=== PATIENT | male | born 1970 | race Caucasian/White ===

== ENCOUNTER 2018-12-11 22:50 | Inpatient (IN) | payer OTHER ==
[2018-12-11 23:13] VITALS: BMI 27.3
--- NOTE | 2018-12-11 23:56 | HP ---
"CIWA Score Nausea/Vomitin-No Nausea/No Vomiting Muscle Tremors: 4-Moderate,w/Arms Extend Anxiety: 0-No Anxiety, at Ease Agitation: 4-Moderately Restless Paroxysmal Sweats: 3 (Increased facial moisture) Orientation: 1-Uncertain about Date Tacttile Disturbances: 0-None Auditory Disturbances: 0-None Visual Disturbances: 0-None Headache: 0-None Present CIWA-Ar Total Score: 12 - Admission Criteria OAS Guidelines: Admission for Medically Managed Detox: Requires at least one of the followin. CIWA greater than 12 2. Seizures within the past 24 hours 3. Delirium tremens within the past 24 hours 4. Hallucinations within the past 24 hours 5. Acute intervention needed for co occurring medical disorder 6. Acute intervention needed for co occurring psychiatric disorder 7. Severe withdrawal that cannot be handled at a lower level of care (continued vomiting, continued diarrhea, abnormal vital signs) requiring intravenous medication and/or fluids 8. Patient presents the following: CIWA greater than 12 (KI 0.025) Admission Criteria Met: Admission criteria met Admission ROS [facility] Chief Complaint: Having alcohol withdrawal. Allergies/Adverse Reactions: Allergies Allergy/AdvReac Type Severity Reaction Status Date / Time aspirin Allergy Severe Rash Verified 12/11/18 23:01 History of Present Illness: 48 yo presents w/ alcohol withdrawal symptoms requesting detox. Alcohol use began at age 19. Currently drinks 1/2 pt liquor + beers daily. Started back drinking 3 months ago. Cocaine use began at age 19. Stopped for a 1.5 years and restarted 3 months ago and uses daily. Heroin use began at age 15. [facility] has been consistently using heroin 2-3 x/ week. Currently on [facility] MMTP x 1 - 1.5 years. Current methadone dose ins 75 mg PO Daily. Last medicated 12/11/18. [facility] had a Narcan Kit at home but used to save brother's life. Patient wants another Narcan Kit. Nicotine use began at age 15. Currently smokes 1/2 PPD. Will consider nicotine patch and gum upon discharge. Denies hx seizures, blackouts, overdoses. Longest period sobriety 2 years in 2009. PMHx: NIDDM; Heart murmur MHHx: Occ depression. Denies thoughts of harming self or others. Domiciled. Search Terms: Alex Munoz, 1970 Search Date: 12/11/2018 11:53:28 PM The Drug Utilization Report below displays all of the controlled substance prescriptions, if any, that your patient has filled in the last twelve months. The information displayed on this report is compiled from pharmacy submissions to the Department, and accurately reflects the information as submitted by the pharmacies. This report was requested by: Carol Cabrera | Reference #: [id number] There are no results for the search terms that you entered. Search Terms: Alex Munoz, 1970 Search Date: 12/11/2018 11:56:09 PM States Searched: [place], [place], [place], [place], [place], [place], [place] The Drug Utilization Report below displays the controlled substance prescriptions, if any, that were dispensed in the indicated state(s). The information displayed on this report is compiled from requests submitted to other states' PMPs, and accurately reflects the information as returned by them. Blank david indicate data not provided by other state. This report was requested by: Carol Cabrera | Reference #: [id number] Exam Limitations: No Limitations - Ebola screening Have you traveled outside of the country in the last 21 days: No (N) Have you had contact with anyone from an Ebola affected area: No Have you been sick,other than usual withdrawal symptoms: No (Denies recent exposure to measles) Do you have a fever: No - Review of Systems Constitutional: Diaphoresis, Changes in sleep (Difficulty falling asleep - not on meds) EENT: reports: Blurred Vision, Dental Problems (Missing teeth and cavities.) Respiratory: reports: No Symptoms reported Cardiac: reports: No Symptoms Reported GI: reports: No Symptoms Reported : reports: No Symptoms Reported Musculoskeletal: reports: No Symptoms Reported Integumentary: reports: No Symptoms Reported Neuro: reports: Tremors Endocrine: reports: Increased Thirst Hematology: reports: No Symptoms Reported Psychiatric: reports: Judgement Intact, Orientated x3 (Missed by 1 day) Patient History - Patient Medical History Hx Anemia: No Hx Asthma: No Hx Chronic Obstructive Pulmonary Disease (COPD): No Hx Cancer: No Hx Cardiac Disorders: No Hx Hypertension: Yes (vasotec 5 mg ) Hx Hypercholesterolemia: No Hx Pacemaker: No HX Cerebrovascular Accident: No Hx Seizures: No Hx Dementia: No Hx Diabetes: Yes (metformin ) Hx Gastrointestinal Disorders: No Hx Liver Disease: No Hx Genitourinary Disorders: No Hx Sexually Transmitted Disorders: No Hx Renal Disease (ESRD): No Hx Thyroid Disease: No Hx Human Immunodeficiency Virus (HIV): No (negative 7months ago) Hx Hepatitis C: No Hx Depression: No Hx Suicide Attempt: No (denies) Hx Bipolar Disorder: No Hx Schizophrenia: No - Patient Surgical History Past Surgical History: No Hx Neurologic Surgery: No Hx Cataract Extraction: No Hx Cardiac Surgery: No Hx Lung Surgery: No Hx Breast Surgery: No Hx Breast Biopsy: No Hx Abdominal Surgery: No Hx Appendectomy: No Hx Cholecystectomy: No Hx Genitourinary Surgery: No Hx Section: No Hx Orthopedic Surgery: No Anesthesia Reaction: No - PPD History Previous Implant?: Yes Documented Results: Negative w/proof Implanted On [facility] Admission?: Yes Date: 02/19/14 PPD to be Administered?: No - Smoking Cessation Smoking history: Current every day smoker Have you smoked in the past 12 months: Yes Aproximately how many cigarettes per day: 10 Hx Chewing Tobacco Use: No Initiated information on smoking cessation: Yes 'Breaking Loose' booklet given: 12/12/18 - Substance & Tx. History Hx Alcohol Use: Yes Hx Substance Use: Yes Substance Use Type: Alcohol, Cocaine, Heroin Hx Substance Use Treatment: Yes (detox, rehab, Currently on MMTP ) - Substances abused Alcohol Substance route: Oral Frequency: Daily Amount used: 1/2 PINT [place], 12 CANS OF BEER Age of first use: 19 Date of last use: 12/11/18 Cocaine Substance route: Inhalation Frequency: Daily Amount used: $40 Age of first use: 19 Date of last use: 12/11/18 Heroin Substance route: Inhalation Frequency: Daily Amount used: 3-4 BAGS Age of first use: 15 Date of last use: 12/10/18 Admission Physical Exam BHS - Vital Signs Vital Signs: Vital Signs - 24 hr 12/11/18 22:57 Temperature 98.4 F Pulse Rate 69 Respiratory 18 Rate Blood Pressure 123/77 - Physical General Appearance: Yes: Nourished, Mild Distress, Tremorous, Sweating ( Increased facial moisture), Anxious HEENTM: Yes: EOMI, Hearing grossly Normal, Normocephalic, Normal Voice, CHAMP, Pharynx Normal, Other (Thickened oral saliva) Respiratory: Yes: Lungs Clear, Normal Breath Sounds, No Respiratory Distress Neck: Yes: No masses,lesions,Nodules, Supple Breast: Yes: Breast Exam Deferred Cardiology: Yes: Regular Rhythm, S1, S2, Bradycardia (HR: 58), Other (No murmur heard on PE.) Abdominal: Yes: Non Tender, Soft, Increased Bowel Sounds, Protuberent ( Increased abdominal adiposity) Genitourinary: Yes: Within Normal Limits Back: Yes: Normal Inspection Musculoskeletal: Yes: full range of Motion, Gait Steady Extremities: Yes: Normal Capillary Refill, Normal Range of Motion, Tremors ( Gross tremors w/ arms elevated) Neurological: Yes: licensed plumber II-XII NML intact, Fully Oriented, Alert, Motor Strength 5/5, Normal Response Integumentary: Yes: Normal Color, Warm, Diaphoresis (Increased facial moisture) , Other (Decreased skin turgor) Lymphatic: Yes: Within Normal Limits - Diagnostic (1) Alcohol dependence with uncomplicated withdrawal Current Visit: Yes Status: Acute (2) Poor dentition Current Visit: Yes Status: Chronic (3) Methadone maintenance therapy patient Current Visit: Yes Status: Chronic (4) Type 2 diabetes mellitus Current Visit: Yes Status: Chronic Qualifiers: Diabetes mellitus rip tailer insulin use: without rip tailer use Diabetes mellitus complication status: without complication Qualified Code(s): E11.9 - Type 2 diabetes mellitus without complications (5) Cocaine dependence Current Visit: Yes Status: Chronic Qualifiers: Substance use status: uncomplicated Qualified Code(s): F14.20 - Cocaine dependence, uncomplicated (6) Nicotine dependence, uncomplicated Current Visit: Yes Status: Chronic Qualifiers: Nicotine product type: cigarettes Qualified Code(s): F17.210 - Nicotine dependence, cigarettes, uncomplicated (7) History of cardiac murmur Current Visit: No Status: Chronic Comment: B/P wnl and murmur not heard on PE. (8) Dehydration Current Visit: Yes Status: Acute Cleared for Admission S - Detox or Rehab [facility] Level of Care: Medically Managed Detox Regimen/Protocol: Librium Claeared for Rehab Admission: No Breathalyzer - Breathalyzer Breathalyzer: 0.025 Urine Drug Screen - Test Device Lot number: [id number] Expiration date: 09/02/20 - Control Is test valid?: Yes - Results Drug screen NEGATIVE: No Urine drug screen results: CHEKO-Cocaine, MOP-Opiates, MTD-Methadone, BZO- Benzodiazepines Inpatient Rehab Admission - Rehab Decision to Admit Inpatient rehab admission?: No"
[2018-12-12] MEDS ORDERED: chlordiazePOXIDE HCL 10 MG CAPSULE PO PRN (00:34)
[2018-12-12] MEDS ORDERED: MENTHOL/PHENOL 1 EACH UD MM PRN (00:34)
[2018-12-12] MEDS ORDERED: MAGNESIUM CITRATE 300 ML BOTTLE PO PRN (00:34)
[2018-12-12] MEDS ORDERED: MAG HYDROX/AL HYDROX/SIMETH 30 ML UNIT-DOSE CUP PO PRN (00:34)
[2018-12-12] MEDS ORDERED: NICOTINE POLACRILEX 2 MG GUM BUC PRN (00:34)
[2018-12-12] MEDS ORDERED: ACETAMINOPHEN 325 MG TABLET (FP) PO PRN ×2 (00:34)
[2018-12-12] MEDS ORDERED: IBUPROFEN 400 MG TABLET (FP) PO PRN (00:34)
[2018-12-12] MEDS ORDERED: MAGNESIUM HYDROX 2400MG/30ML ORAL SUSPENSION 30 ML CUP PO PRN (00:34)
[2018-12-12] MEDS: chlordiazePOXIDE HCL 25 MG CAPSULE PO SCH ×3 (06:21→22:32)
[2018-12-12] MEDS ORDERED: METHADONE HCL 10 MG TABLET PO ONE (08:46)
[2018-12-12] MEDS ORDERED: METHADONE 40 MG, METHADONE 30 MG, METHADONE 5 MG PO ONE (08:50)
[2018-12-12] MEDS ORDERED: METHADONE HCL 10 MG TABLET ONE (09:51)
[2018-12-12] MEDS ORDERED: METHADONE HCL 5 MG TABLET ONE (09:51)
[2018-12-12] MEDS ORDERED: METHADONE HCL 40 MG DISPERSABLE TABLET ONE (09:52)
[2018-12-12] MEDS: NICOTINE 14 MG/24 HOURS TOPICAL PATCH TD SCH (10:47)
[2018-12-12] MEDS: PRENATAL VITAMINS W/ FOLIC ACID TABLET (FP) PO SCH (10:47)
--- NOTE | 2018-12-12 11:29 | PN ---
S CIWA - CIWA Score Nausea/Vomitin-No Nausea/No Vomiting Muscle Tremors: 3 Anxiety: 2 Agitation: 3 Paroxysmal Sweats: 3 Orientation: 0-Oriented Tacttile Disturbances: 0-None Auditory Disturbances: 0-None Visual Disturbances: 0-None Headache: 0-None Present CIWA-Ar Total Score: 11 S Progress Note (SOAP) Subjective: sweats shakes interrupted sleep body aches Objective: 12/12/18 11:36 Vital Signs Temperature 98.8 F 12/12/18 10:08 Pulse Rate 58 L 12/12/18 10:08 Respiratory Rate 18 12/12/18 10:08 Blood Pressure 120/65 12/12/18 10:08 O2 Sat by Pulse Oximetry (%) Laboratory Tests 12/12/18 12/12/18 01:34 06:23 POC Glucometer 102 107 labs pending aaox3 ambulating no acute distress Assessment: 12/12/18 11:37 withdrawals sx Plan: continue detox increase fluids pending labs
[2018-12-12] MEDS: metFORMIN HCL 500 MG TABLET (FP) PO SCH (17:32)
[2018-12-12] MEDS: MELATONIN 5 MG TABLETS PO PRN (22:32)
[2018-12-12] MEDS: THIAMINE HCL 100 MG TABLET (FP) PO SCH (22:33)
[2018-12-13] MEDS ORDERED: METHADONE HCL 5 MG TABLET ONE (04:54)
[2018-12-13] MEDS ORDERED: METHADONE HCL 40 MG DISPERSABLE TABLET ONE (04:55)
[2018-12-13] MEDS ORDERED: METHADONE HCL 10 MG TABLET ONE (04:55)
[2018-12-13] MEDS: METHADONE 40 MG, METHADONE 30 MG, METHADONE 5 MG PO SCH (05:18)
[2018-12-13] MEDS: chlordiazePOXIDE 5 MG CAPSULE PO SCH ×3 (05:18→22:33)
[2018-12-13] MEDS ORDERED: METHADONE HCL 40 MG DISPERSABLE TABLET PO SCH (06:00)
[2018-12-13] MEDS: metFORMIN HCL 500 MG TABLET (FP) PO SCH ×2 (06:58→17:32)
[2018-12-13 09:57] LABS: ALBUMIN 3.5 g/dl (3.4-5.0); BILIRUBIN,TOTAL 0.2 mg/dL (0.2-1); BLOOD UREA NITROGEN 19.8 mg/dL (7-18); CREATININE 0.9 mg/dL (0.55-1.3); POTASSIUM 4.3 mmol/L (3.5-5.1)
[2018-12-13 10:01] LABS: HEMATOCRIT 36.6 % (35.4-49); HEMOGLOBIN 12.5 GM/dL (11.7-16.9); MEAN CELL VOLUME 88.3 fl (80-96); MEAN PLT VOLUME 8.3 fl (7.5-11.1); PLATELET COUNT 301 K/MM3 (134-434); RBC 4.15 M/mm3 (4.00-5.60); RDW 14.1 % (11.9-15.9); WHITE BLOOD COUNT 6.3 K/mm3 (4.0-10.0)
[2018-12-13] MEDS: NICOTINE 14 MG/24 HOURS TOPICAL PATCH TD SCH (10:24)
[2018-12-13] MEDS: PRENATAL VITAMINS W/ FOLIC ACID TABLET (FP) PO SCH (10:24)
[2018-12-13 10:25] LABS: HYALINE CASTS 14 /lpf (0-8); URINE APPEARANCE CLEAR; URINE BACTERIA 6.4 /hpf (NEGATIVE); URINE BILIRUBIN NEGATIVE (NEGATIVE); URINE COLOR YELLOW; URINE GLUCOSE (UA) NEGATIVE (NEGATIVE); URINE KETONE NEGATIVE (NEGATIVE); URINE LEUK ESTERASE 2+ (NEGATIVE); URINE NITRITE NEGATIVE (NEGATIVE); URINE PROTEIN NEGATIVE (NEGATIVE); URINE RBC 5 /hpf (0-4); URINE UROBILINOGEN 0.2 mg/dL (0.2-1.0); URINE WBC 9 /hpf (0-5)
--- NOTE | 2018-12-13 13:12 | PN ---
[facility] CIWA - CIWA Score Nausea/Vomitin-No Nausea/No Vomiting Muscle Tremors: 2 Anxiety: 2 Agitation: 2 Paroxysmal Sweats: 3 Orientation: 0-Oriented Tacttile Disturbances: 0-None Auditory Disturbances: 0-None Visual Disturbances: 0-None Headache: 0-None Present CIWA-Ar Total Score: 9 S Progress Note (SOAP) Subjective: sweats shakes i need some supplement with my meals poor appetite Objective: 12/13/18 13:11 Vital Signs Temperature 97.9 F 12/13/18 09:34 Pulse Rate 49 L 12/13/18 09:34 Respiratory Rate 18 12/13/18 09:34 Blood Pressure 103/60 12/13/18 09:34 O2 Sat by Pulse Oximetry (%) Laboratory Tests 12/12/18 12/12/18 12/12/18 01:34 06:23 16:35 WBC RBC Hgb Hct MCV MCH MCHC RDW Plt Count MPV Sodium Potassium Chloride Carbon Dioxide Anion Gap BUN Creatinine Est GFR (CKD-EPI)AfAm Est GFR (CKD-EPI)NonAf POC Glucometer 102 107 117 Random Glucose Hemoglobin A1c % Calcium Total Bilirubin AST ALT Alkaline Phosphatase Total Protein Albumin Urine Color Urine Appearance Urine pH Ur Specific [place] Urine Protein Urine Glucose (UA) Urine Ketones Urine Blood Urine Nitrite Urine Bilirubin Urine Urobilinogen Ur Leukocyte Esterase Urine WBC (Auto) Urine RBC (Auto) Urine Casts (Auto) U Epithel Cells (Auto) Urine Bacteria (Auto) RPR Titer 12/13/18 12/13/18 12/13/18 05:17 08:00 08:00 WBC 6.3 RBC 4.15 Hgb 12.5 Hct 36.6 MCV 88.3 MCH 30.0 MCHC 34.0 RDW 14.1 Plt Count 301 MPV 8.3 Sodium 141 Potassium 4.3 Chloride 105 Carbon Dioxide 31 Anion Gap 5 L BUN 19.8 H Creatinine 0.9 Est GFR (CKD-EPI)AfAm 115.02 Est GFR (CKD-EPI)NonAf 99.24 POC Glucometer 109 Random Glucose 76 Hemoglobin A1c % Calcium 9.0 Total Bilirubin 0.2 AST 12 L ALT 25 Alkaline Phosphatase 78 Total Protein 7.0 Albumin 3.5 Urine Color Urine Appearance Urine pH Ur Specific [place] Urine Protein Urine Glucose (UA) Urine Ketones Urine Blood Urine Nitrite Urine Bilirubin Urine Urobilinogen Ur Leukocyte Esterase Urine WBC (Auto) Urine RBC (Auto) Urine Casts (Auto) U Epithel Cells (Auto) Urine Bacteria (Auto) RPR Titer 12/13/18 12/13/18 12/13/18 08:00 08:00 08:20 WBC RBC Hgb Hct MCV MCH MCHC RDW Plt Count MPV Sodium Potassium Chloride Carbon Dioxide Anion Gap BUN Creatinine Est GFR (CKD-EPI)AfAm Est GFR (CKD-EPI)NonAf POC Glucometer Random Glucose Hemoglobin A1c % 5.8 Calcium Total Bilirubin AST ALT Alkaline Phosphatase Total Protein Albumin Urine Color Yellow Urine Appearance Clear Urine pH 5.0 Ur Specific [place] 1.024 Urine Protein Negative Urine Glucose (UA) Negative Urine Ketones Negative Urine Blood Trace Urine Nitrite Negative Urine Bilirubin Negative Urine Urobilinogen 0.2 Ur Leukocyte Esterase 2+ H Urine WBC (Auto) 9 Urine RBC (Auto) 5 Urine Casts (Auto) 14 U Epithel Cells (Auto) 5.0 Urine Bacteria (Auto) 6.4 RPR Titer Nonreactive labs noted aaox3 ambulating no acute distress Assessment: 12/13/18 13:12 withdrawal sx Plan: continue detox increase fluids glucerna ordered
[2018-12-13 13:41] LABS: URINE CRYSTALS CALCIUM OXALATE=1+ /hpf
[2018-12-13] MEDS: THIAMINE HCL 100 MG TABLET (FP) PO SCH (22:33)
[2018-12-13] MEDS: MELATONIN 5 MG TABLETS PO PRN (22:33)
[2018-12-14] MEDS ORDERED: chlordiazePOXIDE HCL 10 MG CAPSULE PO PRN
[2018-12-14] MEDS ORDERED: METHADONE HCL 40 MG DISPERSABLE TABLET ONE (05:15)
[2018-12-14] MEDS ORDERED: METHADONE HCL 10 MG TABLET ONE (05:15)
[2018-12-14] MEDS ORDERED: METHADONE HCL 5 MG TABLET ONE (05:15)
[2018-12-14] MEDS: chlordiazePOXIDE HCL 10 MG CAPSULE PO SCH ×3 (05:52→22:52)
[2018-12-14] MEDS: METHADONE 40 MG, METHADONE 30 MG, METHADONE 5 MG PO SCH (05:52)
[2018-12-14] MEDS: metFORMIN HCL 500 MG TABLET (FP) PO SCH ×2 (07:39→16:43)
[2018-12-14] MEDS: PRENATAL VITAMINS W/ FOLIC ACID TABLET (FP) PO SCH (11:27)
[2018-12-14] MEDS: NICOTINE 14 MG/24 HOURS TOPICAL PATCH TD SCH (11:27)
[2018-12-14] MEDS: HYDROCORTISONE 1% TOPICAL CREAM 30 GM TUBE TP SCH ×2 (11:28→23:52)
--- NOTE | 2018-12-14 16:31 | PN ---
S CIWA - CIWA Score Nausea/Vomitin-No Nausea/No Vomiting Muscle Tremors: None Anxiety: 3 Agitation: 2 Paroxysmal Sweats: 2 Orientation: 0-Oriented Tacttile Disturbances: 0-None Auditory Disturbances: 0-None Visual Disturbances: 0-None Headache: 0-None Present CIWA-Ar Total Score: 7 S Progress Note (SOAP) Subjective: Sweating, tremor, chills, anxious, c/o itchy rash on right inner forearm after gardening prior to coming here at [facility] Objective: 12/14/18 16:26 Last Vital Signs Temp Pulse Resp BP Pulse Ox 96.1 F L 53 L 16 112/64 12/14/18 13:39 12/14/18 13:39 12/14/18 13:39 12/14/18 13:39 PE: Arm: multiple macular, papular mildly erythemic rash to right inner forearm Laboratory Tests 12/12/18 12/12/18 12/12/18 01:34 06:23 16:35 WBC RBC Hgb Hct MCV MCH MCHC RDW Plt Count MPV Sodium Potassium Chloride Carbon Dioxide Anion Gap BUN Creatinine Est GFR (CKD-EPI)AfAm Est GFR (CKD-EPI)NonAf POC Glucometer 102 107 117 Random Glucose Hemoglobin A1c % Calcium Total Bilirubin AST ALT Alkaline Phosphatase Total Protein Albumin Urine Color Urine Appearance Urine pH Ur Specific [place] Urine Protein Urine Glucose (UA) Urine Ketones Urine Blood Urine Nitrite Urine Bilirubin Urine Urobilinogen Ur Leukocyte Esterase Urine WBC (Auto) Urine RBC (Auto) Urine Casts (Auto) U Epithel Cells (Auto) Urine Crystals (Auto) Urine Bacteria (Auto) RPR Titer 12/13/18 12/13/18 12/13/18 05:17 08:00 08:00 WBC 6.3 RBC 4.15 Hgb 12.5 Hct 36.6 MCV 88.3 MCH 30.0 MCHC 34.0 RDW 14.1 Plt Count 301 MPV 8.3 Sodium 141 Potassium 4.3 Chloride 105 Carbon Dioxide 31 Anion Gap 5 L BUN 19.8 H Creatinine 0.9 Est GFR (CKD-EPI)AfAm 115.02 Est GFR (CKD-EPI)NonAf 99.24 POC Glucometer 109 Random Glucose 76 Hemoglobin A1c % Calcium 9.0 Total Bilirubin 0.2 AST 12 L ALT 25 Alkaline Phosphatase 78 Total Protein 7.0 Albumin 3.5 Urine Color Urine Appearance Urine pH Ur Specific [place] Urine Protein Urine Glucose (UA) Urine Ketones Urine Blood Urine Nitrite Urine Bilirubin Urine Urobilinogen Ur Leukocyte Esterase Urine WBC (Auto) Urine RBC (Auto) Urine Casts (Auto) U Epithel Cells (Auto) Urine Crystals (Auto) Urine Bacteria (Auto) RPR Titer 12/13/18 12/13/18 12/13/18 08:00 08:00 08:20 WBC RBC Hgb Hct MCV MCH MCHC RDW Plt Count MPV Sodium Potassium Chloride Carbon Dioxide Anion Gap BUN Creatinine Est GFR (CKD-EPI)AfAm Est GFR (CKD-EPI)NonAf POC Glucometer Random Glucose Hemoglobin A1c % 5.8 Calcium Total Bilirubin AST ALT Alkaline Phosphatase Total Protein Albumin Urine Color Yellow Urine Appearance Clear Urine pH 5.0 Ur Specific [place] 1.024 Urine Protein Negative Urine Glucose (UA) Negative Urine Ketones Negative Urine Blood Trace Urine Nitrite Negative Urine Bilirubin Negative Urine Urobilinogen 0.2 Ur Leukocyte Esterase 2+ H Urine WBC (Auto) 9 Urine RBC (Auto) 5 Urine Casts (Auto) 14 U Epithel Cells (Auto) 5.0 Urine Crystals (Auto) Calcium oxalate=1+ Urine Bacteria (Auto) 6.4 RPR Titer Nonreactive 12/13/18 12/13/18 12/14/18 16:57 22:06 05:50 WBC RBC Hgb Hct MCV MCH MCHC RDW Plt Count MPV Sodium Potassium Chloride Carbon Dioxide Anion Gap BUN Creatinine Est GFR (CKD-EPI)AfAm Est GFR (CKD-EPI)NonAf POC Glucometer 112 132 105 Random Glucose Hemoglobin A1c % Calcium Total Bilirubin AST ALT Alkaline Phosphatase Total Protein Albumin Urine Color Urine Appearance Urine pH Ur Specific [place] Urine Protein Urine Glucose (UA) Urine Ketones Urine Blood Urine Nitrite Urine Bilirubin Urine Urobilinogen Ur Leukocyte Esterase Urine WBC (Auto) Urine RBC (Auto) Urine Casts (Auto) U Epithel Cells (Auto) Urine Crystals (Auto) Urine Bacteria (Auto) RPR Titer Labs reviewed: elevated glucose due to DM (presently in prediabetic stage as per A1c result) Assessment: 12/14/18 16:28 Withdrawal sxs Noted with acute dermatitis to right inner forearm Plan: Continue detox Encouraged PO water intake Can be discharged tomorrow after QFN test result available Dermatitis right arm: hydrocortisone cream 1% bid DMT2 with hyperglycemia: continue present regimen, encouraged adherence to diabetic diet
[2018-12-14 21:47] VITALS: PULSE 55
[2018-12-14] MEDS: THIAMINE HCL 100 MG TABLET (FP) PO SCH (23:52)
[2018-12-15] MEDS ORDERED: chlordiazePOXIDE HCL 10 MG CAPSULE PO ONE (05:00)
[2018-12-15 06:34] VITALS: BP 129/76; TEMP 97.7
[2018-12-15] MEDS ORDERED: METHADONE HCL 40 MG DISPERSABLE TABLET ONE (07:24)
[2018-12-15] MEDS ORDERED: METHADONE HCL 10 MG TABLET ONE (07:24)
[2018-12-15] MEDS ORDERED: METHADONE HCL 5 MG TABLET ONE (07:24)
[2018-12-15] MEDS: METHADONE 40 MG, METHADONE 30 MG, METHADONE 5 MG PO SCH (07:32)
[2018-12-15] MEDS: metFORMIN HCL 500 MG TABLET (FP) PO SCH (07:33)
--- NOTE | 2018-12-15 09:20 | DS ---
[facility] Detox Discharge Summary Admission Date: 12/11/18 Discharge Date: 12/15/18 - History Present History: Alcohol Dependence, Cocaine Dependence, MMTP - Physical Exam Results Vital Signs: Vital Signs Temperature 97.7 F 12/15/18 06:00 Pulse Rate 55 L 12/15/18 06:00 Respiratory Rate 18 12/15/18 06:00 Blood Pressure 129/76 12/15/18 06:00 O2 Sat by Pulse Oximetry (%) Pertinent Admission Physical Exam Findings: pt arrived in withdrawals Laboratory Tests 12/12/18 12/12/18 12/12/18 01:34 06:23 16:35 WBC RBC Hgb Hct MCV MCH MCHC RDW Plt Count MPV Sodium Potassium Chloride Carbon Dioxide Anion Gap BUN Creatinine Est GFR (CKD-EPI)AfAm Est GFR (CKD-EPI)NonAf POC Glucometer 102 107 117 Random Glucose Hemoglobin A1c % Calcium Total Bilirubin AST ALT Alkaline Phosphatase Total Protein Albumin Urine Color Urine Appearance Urine pH Ur Specific [place] Urine Protein Urine Glucose (UA) Urine Ketones Urine Blood Urine Nitrite Urine Bilirubin Urine Urobilinogen Ur Leukocyte Esterase Urine WBC (Auto) Urine RBC (Auto) Urine Casts (Auto) U Epithel Cells (Auto) Urine Crystals (Auto) Urine Bacteria (Auto) RPR Titer 12/13/18 12/13/18 12/13/18 05:17 08:00 08:00 WBC 6.3 RBC 4.15 Hgb 12.5 Hct 36.6 MCV 88.3 MCH 30.0 MCHC 34.0 RDW 14.1 Plt Count 301 MPV 8.3 Sodium 141 Potassium 4.3 Chloride 105 Carbon Dioxide 31 Anion Gap 5 L BUN 19.8 H Creatinine 0.9 Est GFR (CKD-EPI)AfAm 115.02 Est GFR (CKD-EPI)NonAf 99.24 POC Glucometer 109 Random Glucose 76 Hemoglobin A1c % Calcium 9.0 Total Bilirubin 0.2 AST 12 L ALT 25 Alkaline Phosphatase 78 Total Protein 7.0 Albumin 3.5 Urine Color Urine Appearance Urine pH Ur Specific [place] Urine Protein Urine Glucose (UA) Urine Ketones Urine Blood Urine Nitrite Urine Bilirubin Urine Urobilinogen Ur Leukocyte Esterase Urine WBC (Auto) Urine RBC (Auto) Urine Casts (Auto) U Epithel Cells (Auto) Urine Crystals (Auto) Urine Bacteria (Auto) RPR Titer 12/13/18 12/13/18 12/13/18 08:00 08:00 08:20 WBC RBC Hgb Hct MCV MCH MCHC RDW Plt Count MPV Sodium Potassium Chloride Carbon Dioxide Anion Gap BUN Creatinine Est GFR (CKD-EPI)AfAm Est GFR (CKD-EPI)NonAf POC Glucometer Random Glucose Hemoglobin A1c % 5.8 Calcium Total Bilirubin AST ALT Alkaline Phosphatase Total Protein Albumin Urine Color Yellow Urine Appearance Clear Urine pH 5.0 Ur Specific [place] 1.024 Urine Protein Negative Urine Glucose (UA) Negative Urine Ketones Negative Urine Blood Trace Urine Nitrite Negative Urine Bilirubin Negative Urine Urobilinogen 0.2 Ur Leukocyte Esterase 2+ H Urine WBC (Auto) 9 Urine RBC (Auto) 5 Urine Casts (Auto) 14 U Epithel Cells (Auto) 5.0 Urine Crystals (Auto) Calcium oxalate=1+ Urine Bacteria (Auto) 6.4 RPR Titer Nonreactive 12/13/18 12/13/18 12/14/18 16:57 22:06 05:50 WBC RBC Hgb Hct MCV MCH MCHC RDW Plt Count MPV Sodium Potassium Chloride Carbon Dioxide Anion Gap BUN Creatinine Est GFR (CKD-EPI)AfAm Est GFR (CKD-EPI)NonAf POC Glucometer 112 132 105 Random Glucose Hemoglobin A1c % Calcium Total Bilirubin AST ALT Alkaline Phosphatase Total Protein Albumin Urine Color Urine Appearance Urine pH Ur Specific [place] Urine Protein Urine Glucose (UA) Urine Ketones Urine Blood Urine Nitrite Urine Bilirubin Urine Urobilinogen Ur Leukocyte Esterase Urine WBC (Auto) Urine RBC (Auto) Urine Casts (Auto) U Epithel Cells (Auto) Urine Crystals (Auto) Urine Bacteria (Auto) RPR Titer 12/14/18 12/15/18 17:08 06:25 WBC RBC Hgb Hct MCV MCH MCHC RDW Plt Count MPV Sodium Potassium Chloride Carbon Dioxide Anion Gap BUN Creatinine Est GFR (CKD-EPI)AfAm Est GFR (CKD-EPI)NonAf POC Glucometer 119 119 Random Glucose Hemoglobin A1c % Calcium Total Bilirubin AST ALT Alkaline Phosphatase Total Protein Albumin Urine Color Urine Appearance Urine pH Ur Specific [place] Urine Protein Urine Glucose (UA) Urine Ketones Urine Blood Urine Nitrite Urine Bilirubin Urine Urobilinogen Ur Leukocyte Esterase Urine WBC (Auto) Urine RBC (Auto) Urine Casts (Auto) U Epithel Cells (Auto) Urine Crystals (Auto) Urine Bacteria (Auto) RPR Titer today pt is aaox3 ambulating no s/s of withdrawals - Treatment Hospital Course: Detox Protocol Followed, Detoxed Safely, Responded well, Discharged Condition Good, Rehab Referral Accepted Patient has Accepted a Rehab Referral to: referral provided - Medication Discharge Medications: Ambulatory Orders Metformin HCl [Glucophage Xr] 500 mg PO DAILY 07/10/11 - Diagnosis (1) Alcohol dependence with uncomplicated withdrawal Current Visit: Yes Status: Chronic (2) Dehydration Current Visit: Yes Status: Acute (3) Cocaine dependence Current Visit: Yes Status: Chronic Qualifiers: Substance use status: uncomplicated Qualified Code(s): F14.20 - Cocaine dependence, uncomplicated (4) Methadone maintenance therapy patient Current Visit: Yes Status: Chronic (5) Nicotine dependence, uncomplicated Current Visit: Yes Status: Chronic Qualifiers: Nicotine product type: cigarettes Qualified Code(s): F17.210 - Nicotine dependence, cigarettes, uncomplicated (6) Poor dentition Current Visit: Yes Status: Chronic (7) Type 2 diabetes mellitus Current Visit: Yes Status: Chronic Qualifiers: Diabetes mellitus shelter insulin use: without intermediate designer use Diabetes mellitus complication status: without complication Qualified Code(s): E11.9 - Type 2 diabetes mellitus without complications (8) Diabetes Current Visit: Yes Status: Chronic Qualifiers: Diabetes mellitus type: type 1 Diabetes mellitus complication status: without complication Qualified Code(s): E10.9 - Type 1 diabetes mellitus without complications (9) History of cardiac murmur Current Visit: No Status: Chronic (10) Hypertension Current Visit: Yes Status: Chronic Qualifiers: Hypertension type: essential hypertension Qualified Code(s): I10 - Essential (primary) hypertension (11) Tooth abscess Current Visit: No Status: Chronic - AMA Did Patient Leave Against Medical Advice: No
== END 2018-12-15 09:23 | disposition home or self-care (01) | DRG 773 ==
LOC: YASAS 22:50 → Y6N 23:57
PROVIDERS: ADMIT Surgery; ATTEND Surgery
PROC: HZ2ZZZZ Detoxification Services for Substance Abuse Treatment (ICD-10-PCS; principal; 2018-12-11)
DX: F10.230 Alcohol dependence with withdrawal, uncomplicated (principal); F11.20 Opioid dependence, uncomplicated; F14.20 Cocaine dependence, uncomplicated; F17.210 Nicotine dependence, cigarettes, uncomplicated; I10 Essential (primary) hypertension; E86.0 Dehydration; K08.9 Disorder of teeth and supporting structures, unspecified; E11.9 Type 2 diabetes mellitus without complications; K04.7 Periapical abscess without sinus; L30.9 Dermatitis, unspecified; R00.1 Bradycardia, unspecified; Z79.84 Long term (current) use of oral hypoglycemic drugs; Z88.6 Allergy status to analgesic agent
CPT/HCPCS: 36415; 80053; 81003; 82962; 83036; 85027; 86480; 86593